=== PATIENT | male | born 1965 | race Caucasian/White ===

== ENCOUNTER → 2017-04-22 09:59 | Outpatient (CLI) | payer MEDICAID | END | disposition home or self-care (01) | LOC: D.US 09:59 → EDSEX 09:59 → D.US 11:00 | DX: E04.2 Nontoxic multinodular goiter (principal) ==

== ENCOUNTER → 2017-05-20 08:02 | Outpatient (CLI) | payer MEDICAID | END | disposition home or self-care (01) | LOC: EDSEX 08:02 → D.NM 08:02 | DX: E04.1 Nontoxic single thyroid nodule (principal) ==

== ENCOUNTER → 2018-02-10 14:42 | Outpatient (CLI) | payer MEDICAID | END | disposition home or self-care (01) | LOC: D.US 14:42 | DX: E04.2 Nontoxic multinodular goiter (principal) ==

== ENCOUNTER → 2018-06-19 10:36 | Outpatient (CLI) | payer MEDICAID | END | disposition home or self-care (01) | LOC: D.US 10:36 | PROVIDERS: ATTEND Internal Medicine | DX: I12.9 Hypertensive chronic kidney disease with stage 1 through stage 4 chronic kidney disease, or unspecified chronic kidney disease (principal); N18.3 Chronic kidney disease, stage 3 (moderate); R31.9 Hematuria, unspecified; E78.5 Hyperlipidemia, unspecified; Z68.39 Body mass index [BMI] 39.0-39.9, adult ==